=== PATIENT | female | born 1950 | race Caucasian/White ===

== ENCOUNTER → 2016-09-09 | Outpatient (CLI) | payer OTHER | LOC: FCPNEURO 23:22 | PROVIDERS: ATTEND Psychiatry & Neurology Sleep Medicine | DX: G47.33 Obstructive sleep apnea (adult) (pediatric) (principal) ==

== ENCOUNTER → 2017-01-12 | Outpatient (CLI) | payer OTHER | LOC: FIMAGING 14:32 | PROVIDERS: ATTEND Family Medicine | DX: Z12.31 Encounter for screening mammogram for malignant neoplasm of breast (principal); Z13.820 Encounter for screening for osteoporosis; M85.80 Other specified disorders of bone density and structure, unspecified site; Z82.62 Family history of osteoporosis | CPT/HCPCS: G0202 ==

== ENCOUNTER 2017-02-13 17:02 | Emergency (ER) | payer OTHER ==
[2017-02-13 17:09] VITALS: RESP 16; O2SAT 97
[2017-02-13] MEDS ORDERED: IBUPROFEN 600 MG TAB PO ONE (17:14)
--- NOTE | 2017-02-13 17:46 | EDPHY ---
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 She landed on her right knee in a 90 degree flexion position. She struck it on the ground and felt a sudden onset of pain over the patella. It is moderate to severe pain when she ambulates, it and she did have [place]. Minimal pain at rest. Does not radiate. No numbness or tingling. No pain in the ipsilateral hip, gonzales, ankle, heel or foot. She also complains of a mild abrasion to the left palm of the hand she sustained does have some rocks and. No bony tenderness of the hand. No pain in the left wrist. No head or neck injury. No chest or back pain. No other associated complaints or modifying factors. PRIOR ORTHO INJURIES: Various ESTABLISHED ORTHOPEDIST: Dr. Buck REVIEW OF SYSTEMS: Ten systems reviewed and are negative unless otherwise noted in the HPI EXAMINATION General Appearance: Alert, no distress Cardiovascular: Pulses normal throughout. Symmetric radial pulses are 2+. Symmetric DP and PT pulses 2+. Brisk cap refill Neurological: A&O, sensory symmetric, strength symmetric Skin: Warm and dry. Superficial abrasion of the left palm of hand with some foreign body present. Neurovascular intact distal to this. Mild erythema in ecchymosis to the right patella and anterior knee. Extremities: Mild tenderness to the palm of left hand. There is no bony tenderness of the left upper extremity. Full range of motion left upper extremity. There is tenderness and edema over the right knee. Difficult to range the knee due to pain. There is no tenderness of the right hip, ankle or calcaneus. Range of motion of the right hip and ankle are fully intact. Neurovascular intact distal to the areas of pain. Psychiatric: Mood and affect normal DIFFERENTIAL DIAGNOSES: Including but not limited to fracture, sprain, strain, hematoma, contusion, dislocation, abrasion, foreign body MDM: 5:45 p.m. Mechanical fall with right knee pain and patellar fracture on plain film. There is abrasion with foreign body in the palm of the left hand. I mobilized the right leg with straight leg immobilizer and crutches. Irrigate and debride the left hand. Tetanus is up-to-date. She is in no acute distress and neurovascular intact at this time. 6:00 p.m. Right patellar fracture without any injury elsewhere. She is neurovascular intact. She has been placed in a straight leg immobilizer and we provided crutches. She has nonweightbearing instructions until seen by Orthopedics next week. She will contact her established orthopedist. She also has an abrasion to the left palm. This has been debrided. Routine wound care has been discussed. Follow up with primary care physician for this. Return to the emergency department precautions were discussed. She is discharged home neurovascular intact in stable condition. ED Precautions: Worsening pain. Erythema, edema, cyanosis, pallor, paresthesia or anesthesia. SUPERVISION: This patient was independently evaluated without direct examination by the attending physician. Case was discussed with attending physician. Source: Patient Exam Limitations: No limitations - Personal History Current Tetanus/Diphtheria Vaccine: Yes Current Tetanus Diphtheria and Acellular Pertussis (TDAP): Yes - Medical/Surgical History Hx Asthma: No Hx Chronic Respiratory Disease: No Hx Diabetes: No Hx Cardiac Disease: No Hx Renal Disease: No Hx Cirrhosis: No Hx Alcoholism: No Hx HIV/AIDS: No Hx Splenectomy or Spleen Trauma: No Other PMH: arthritis - Social History Smoking Status: Never smoked Constitutional: Initial Vital Signs Temperature (C) 97.7 F 02/13/17 17:06 Heart Rate 74 02/13/17 17:06 Respiratory Rate 16 02/13/17 17:06 Blood Pressure 115/72 02/13/17 17:06 O2 Sat (%) 97 02/13/17 17:06 O2 Delivery Mode Room Air Allergies/Adverse Reactions: No Known Allergies Allergy (Unverified 02/13/17 17:05) Home Medications: Medication Instructions Recorded GABAPENTIN 02/13/17 Hydrocodone/APAP 5/325 [[place] 1 - 2 tab PO Q4H PRN #14 tab 02/13/17 5/325 (*)] Medical Decision Making - Diagnostics Imaging Results: Imaging Impressions Knee X-Ray 02/13/17 17:10 Impression: Minimally distracted lateral patellar fracture with an associated suprapatellar joint effusion. - Data Points Medications Given: Discontinued Medications Hydrocodone Bitart/Acetaminophen ([place] 5/325mg Prepack#6) 1 btl TAKEHOME EDNOW ONE Stop: 02/13/17 18:51 Last Admin: 02/13/17 18:52 Dose: 1 btl Ibuprofen (Motrin) 600 mg PO EDNOW ONE Stop: 02/13/17 17:15 Last Admin: 02/13/17 17:17 Dose: 600 mg Departure - Departure Disposition: Home, Routine, Self-Care Clinical Impression: Abrasion, hand without infection Right patella fracture Qualifiers: Encounter type: initial encounter Fracture type: closed Fracture morphology: longitudinal Fracture alignment: displaced Qualified Code(s): S82.021A - Displaced longitudinal fracture of right patella, initial encounter for closed fracture Condition: Good Instructions: Patellar Fracture (ED), Abrasion (ED) Additional Instructions: Follow up with Orthopedics for definitive care of the right knee. Nonweightbearing. Continue her anti-inflammatories SURJIT have. Daily wound care to the hand as discussed. Follow up here for worsening pain, numbness, tingling , redness, pain or swelling of the calf Referrals: Veronique Marcano MD [Primary Care Provider] - As per Instructions Elsy Buck MD [Medical Doctor] - As per Instructions Prescriptions: Hydrocodone/APAP 5/325 [[place] 5/325 (*)] 1 - 2 tab PO Q4H PRN #14 tab PRN Reason: Pain, Moderate
[2017-02-13 17:54] VITALS: BP 114/70; PULSE 70; TEMP 97.5
[2017-02-13] MEDS ORDERED: HYDROCOD/APAP 5/325 PREPACK#6 BTL TAKEHOME ONE (18:50)
== END 2017-02-13 18:38 | disposition home or self-care (01) ==
DX: S82.021A Displaced longitudinal fracture of right patella, initial encounter for closed fracture (principal); S60.512A Abrasion of left hand, initial encounter; W01.0XXA Fall on same level from slipping, tripping and stumbling without subsequent striking against object, initial encounter; Y99.8 Other external cause status; Y93.01 Activity, walking, marching and hiking
CPT/HCPCS: 73564; 99283; L1830

== ENCOUNTER → 2018-01-28 | Outpatient (CLI) | payer OTHER | LOC: FIMAGING 15:57 | PROVIDERS: ATTEND Family Medicine | DX: Z12.31 Encounter for screening mammogram for malignant neoplasm of breast (principal) ==

== ENCOUNTER → 2019-02-03 | Outpatient (CLI) | payer OTHER | LOC: FIMAGING 15:58 ==